=== PATIENT | female | born 1945 | race Caucasian/White ===

== ENCOUNTER 2020-07-23 08:47 | Outpatient (CLI) | payer OTHER ==
[~2020-07-23 08:47] MED LIST: AMBIEN5 MG PO; CYMBALTA60 MG; MICARDIS80 MG PO; PROTONIX40 MG PO
== END 2020-07-23 08:57 | disposition home or self-care (01) ==
LOC: MRI 08:47
PROVIDERS: ATTEND Specialist
DX: K83.1 Obstruction of bile duct (principal)
CPT/HCPCS: 74181

== ENCOUNTER 2020-09-09 11:42 | Outpatient (CLI) | payer OTHER | END 2020-09-09 15:28 | disposition home or self-care (01) | LOC: MRI 11:42 | PROVIDERS: ATTEND Orthopaedic Surgery | DX: M43.17 Spondylolisthesis, lumbosacral region (principal); M54.5 Low back pain | CPT/HCPCS: 72148 ==

== ENCOUNTER 2021-03-12 18:36 | Emergency (ER) | payer OTHER ==
[~2021-03-12] VITALS: Ht 160 cm; Wt 59.0 kg
== END 2021-03-12 21:55 | disposition home or self-care (01) ==
LOC: ER 18:36
DX: R42 Dizziness and giddiness (principal)

== ENCOUNTER 2021-04-02 15:14 | Emergency (ER) | payer OTHER ==
[~2021-04-02] VITALS: Ht 157.5 cm; Wt 60.3 kg
[2021-04-02] MEDS ORDERED: LOSARTAN-HCTZ1 EAC2 (15:22)
[2021-04-02] MEDS ORDERED: NORVASC2.5 M1 (15:23)
[2021-04-02] MEDS ORDERED: CLONAZEPAM0.5 MG (15:23)
[2021-04-02] MEDS ORDERED: DRAMAMINE LESS25 MG PO (17:29)
== END 2021-04-02 17:39 | disposition home or self-care (01) ==
LOC: ER 15:14
DX: R42 Dizziness and giddiness (principal); Z88.8 Allergy status to other drugs, medicaments and biological substances; Z20.822 Contact with and (suspected) exposure to COVID-19

== ENCOUNTER 2021-06-19 09:53 | Outpatient (CLI) | payer OTHER ==
[~2021-06-19 09:53] MED LIST changes: +CLONAZEPAM0.5 MG; +DRAMAMINE LESS25 MG PO; +LOSARTAN-HCTZ1 EAC2; +NORVASC2.5 M1
== END 2021-06-19 10:02 | disposition home or self-care (01) ==
LOC: MRI 09:53
DX: I67.1 Cerebral aneurysm, nonruptured (principal)
CPT/HCPCS: 70544; 70548; Q9965; 70549

== ENCOUNTER 2022-10-22 09:16 | Outpatient (CLI) | payer OTHER | END 2022-10-22 09:25 | disposition home or self-care (01) | LOC: RAD 09:16 | PROVIDERS: ATTEND Orthopaedic Surgery | DX: M25.561 Pain in right knee (principal); M25.562 Pain in left knee; S83.201A Bucket-handle tear of unspecified meniscus, current injury, left knee, initial encounter | CPT/HCPCS: 73721 ==

== ENCOUNTER 2024-07-24 07:15 | Inpatient (IN) | payer OTHER ==
[~2024-07-24] VITALS: Ht 157.5 cm; Wt 59.0 kg
[2024-07-24] MEDS ORDERED: TOPROL XL25 M1 PO (07:56)
[2024-07-24] MEDS ORDERED: ATACAND32 MG PO (07:56)
[2024-07-24] MEDS ORDERED: ZYRTEC10 M3 PO (07:57)
[2024-07-24] MEDS ORDERED: ZETIA10 MG (07:57)
[2024-07-24] MEDS ORDERED: ROSUVASTATIN CAL5 MG (07:58)
[2024-07-24] MEDS ORDERED: VENTOLIN HFA18 GM (07:59)
[2024-07-24 08:34] LABS: PH,URINE 5.5 (5.0-8.0); URINE APPEARANCE Clear; URINE BILIRRUBIN Negative (NEGATIVE); URINE BLOOD Negative; URINE COLOR Yellow; URINE GLUCOSE Negative (NEGATIVE); URINE KETONE Negative (NEGATIVE); URINE LEUKOCYTE Trace; URINE NITRATE Negative; URINE PROTEIN Trace (NEGATIVE); URINE UROBILINOGEN 0.2 E.U./dl
[2024-07-24 08:35] LABS: BASO % 0.9 % (0.1-1.2); EOS # 0.11 (0.04-0.54); EOS % 1.7 % (0.7-7.0); HEMATOCRIT 38.9 % (34.1-44.9); HEMOGLOBIN 12.9 g/dL (11.2-15.7); LYMPH % 19.8 % (19.3-53.1); MEAN CORPUSCULAR HEMOGLOBIN 29.2 pg (25.6-32.2); MONO # 0.48 (0.24-0.82); MONO % 7.3 % (4.7-12.5); PLATELET COUNT 235 K/uL (163-369); RED BLOOD COUNT 4.42 M/uL (3.93-5.22); RED CELL DISTRIBUTION WIDTH 13.4 % (11.6-14.4)
[2024-07-24 08:38] VITALS: BP 140/71
[2024-07-24 08:39] LABS: URINE EPITHELIAL CELLS 9.1 uL (0.0-38.8); URINE RBC 3.8 uL (0.0-20.8); URINE WBC 11.3 uL (0.0-23.2)
[2024-07-24 08:57] LABS: INR 0.97; PARTIAL THROMBOPLASTIN TIME 25.1 SECONDS (22.0-34.0); PROTHROMBIN TIME 10.6 SECONDS (9.0-11.5)
[2024-07-24 09:45] LABS: ALBUMIN 3.7 gm/dL (3.4-5.0); BILIRUBIN TOTAL 0.68 mg/dL (0.3-1.2); CALCIUM 9.4 mg/dL (8.5-10.1); CREATININE SERUM 0.86 mg/dL (0.55-1.02); GFR 63.98; GLOBULINA 3.7 G/DL (2.4-3.5); POTASSIUM 4.33 mEq/L (3.5-5.1); TOTAL PROTEIN 7.4 gm/dL (6.4-8.2)
[2024-07-31] MEDS ORDERED: CEFAZOLIN SODIUM 1,000 MG VIAL ONE (07:12)
[2024-07-31] MEDS ORDERED: LIDOCAINE HCL 1%/EPINEPHRINE 20ML VIAL IJ ONE (07:12)
[2024-07-31] MEDS ORDERED: BUPIVACAINE HCL/MPF 0.5% 30ML VIAL ONE (07:12)
[2024-07-31] MEDS ORDERED: KETOROLAC TROMETHAMINE 60 MG VIAL IM ONE (07:12)
[2024-07-31] MEDS ORDERED: ISOPROPYL ALCOHOL 30 ML OUNCE TOP ONE (07:12)
[2024-07-31] MEDS ORDERED: TRANEXAMIC ACID 100MG/1ML (1000MG) AMPUL IV ONE (07:13)
[2024-07-31] MEDS ORDERED: ONDANSETRON HCL 2 MG/ML VIAL IV PRN (09:45)
[2024-07-31] MEDS ORDERED: ONDANSETRON HCL 2 MG/ML VIAL ONE (11:02)
[2024-07-31] MEDS ORDERED: CLONAZEPAM 0.5 MG TABLET PO PRN (11:45)
[2024-07-31] MEDS ORDERED: hydrALAZINE HCL 20 MG VIAL IV PRN (11:45)
[2024-07-31] MEDS ORDERED: CEFAZOLIN SODIUM 1,000 MG VIAL IV SCH (12:00)
[2024-07-31] MEDS ORDERED: MORPHINE SULFATE 4 MG/ML CARTRIDGE IV SCH (12:00)
[2024-07-31] MEDS ORDERED: IPRATROPIUM/ALBUTEROL SULFATE 3 ML AMPUL.NEB IH SCH (12:00)
[2024-07-31] MEDS ORDERED: TRAMADOL HCL 50 MG TABLET PO SCH (12:00)
[2024-07-31 12:54] VITALS: BP 146/83; O2SAT 97
[2024-07-31 18:42] VITALS: BP 138/81; O2SAT 98
[2024-07-31] MEDS ORDERED: GABAPENTIN 100 MG CAPSULE PO SCH (21:00)
[2024-07-31] MEDS ORDERED: ORPHENADRINE CITRATE 100 MG TABLET PO SCH (21:00)
[2024-07-31 23:58] VITALS: BP 129/70; O2SAT 100
[2024-08-01 06:21] LABS: BASO % 0.4 % (0.1-1.2); EOS # 0.08 (0.04-0.54); HEMATOCRIT 33.6 % (34.1-44.9); HEMOGLOBIN 11.1 g/dL (11.2-15.7); LYMPH % 12.7 % (19.3-53.1); MEAN CORPUSCULAR HEMOGLOBIN 29.1 pg (25.6-32.2); MONO % 11.4 % (4.7-12.5); NEUT # 5.87 (1.56-6.13); NEUT % 74.2 % (34.0-71.1); PLATELET COUNT 178 K/uL (163-369); RED BLOOD COUNT 3.81 M/uL (3.93-5.22); RED CELL DISTRIBUTION WIDTH 13.2 % (11.6-14.4)
[2024-08-01 08:02] VITALS: BP 151/75; O2SAT 94
[2024-08-01] MEDS ORDERED: CETIRIZINE HCL 5 MG/5 ML ML PO SCH (09:00)
[2024-08-01] MEDS ORDERED: AMLODIPINE BESYLATE 2.5 MG TABLET PO SCH (09:00)
[2024-08-01] MEDS ORDERED: METOPROLOL SUCCINATE 25 MG TAB.SR.24H PO SCH (09:00)
[2024-08-01] MEDS ORDERED: RIVAROXABAN 10 MG TAB PO SCH (09:00)
[2024-08-01] MEDS ORDERED: CANDESARTAN CILEXETIL 32 MG TABLET PO SCH (09:00)
[2024-08-01] MEDS ORDERED: Cyanocobalamin/Mecobalamin 1 TAB.SL SL NR (11:15)
[2024-08-01] MEDS ORDERED: SOD FERRIC GLUC COMPLX/SUCROSE 62.5 MG/5 ML AMPUL IV SCH (12:00)
[2024-08-01 16:25] VITALS: BP 147/80; O2SAT 94
[2024-08-01] MEDS ORDERED: VITAMIN B COMPLEX 1 EACH PO SCH (17:00)
[2024-08-02 00:20] VITALS: BP 130/72; O2SAT 100
[2024-08-02 06:56] LABS: BASO % 0.4 % (0.1-1.2); EOS # 0.07 (0.04-0.54); EOS % 0.7 % (0.7-7.0); HEMATOCRIT 29.8 % (34.1-44.9); HEMOGLOBIN 9.8 g/dL (11.2-15.7); LYMPH # 0.81 (1.18-3.74); LYMPH % 8.6 % (19.3-53.1); MEAN CORPUSCULAR HEMOGLOBIN 29.5 pg (25.6-32.2); MONO # 0.99 (0.24-0.82); MONO % 10.5 % (4.7-12.5); NEUT # 7.53 (1.56-6.13); NEUT % 79.5 % (34.0-71.1); PLATELET COUNT 139 K/uL (163-369); RED BLOOD COUNT 3.32 M/uL (3.93-5.22); RED CELL DISTRIBUTION WIDTH 13.5 % (11.6-14.4)
[2024-08-02] MEDS ORDERED: Cyanocobalamin/Mecobalamin 1 TAB.SL SL SCH (09:00)
[2024-08-02] MEDS ORDERED: NORFLEX100MG PO (11:59)
[2024-08-02] MEDS ORDERED: XARELTO10 MG PO (11:59)
[2024-08-02] MEDS ORDERED: GABAPENTIN100 MG PO (12:00)
[2024-08-02] MEDS ORDERED: TRAMADOL HCL50 MG PO (12:00)
[2024-08-02 14:39] VITALS: BP 137/73; O2SAT 96
[2024-08-02 16:47] VITALS: BP 132/68; O2SAT 95
== END 2024-08-02 20:04 | DRG 470 ==
LOC: O/R 07-31 06:54 → SURG 07-31 06:54 → SURH 07-31 07:15 → SURG 07-31 11:30 → SURH 07-31 13:00 → SURG 08-02 20:04
PROVIDERS: ADMIT Orthopaedic Surgery; ATTEND Orthopaedic Surgery
PROC: 0SRD0JZ Replacement of Left Knee Joint with Synthetic Substitute, Open Approach (ICD-10-PCS; principal; 2024-07-31 13:00)
DX: M17.12 Unilateral primary osteoarthritis, left knee (principal); D62 Acute posthemorrhagic anemia; M85.662 Other cyst of bone, left lower leg; I10 Essential (primary) hypertension; E78.5 Hyperlipidemia, unspecified